=== PATIENT | female | born 1960 | race Caucasian/White ===

== ENCOUNTER → 2020-05-11 11:30 | Outpatient (CLI) | payer OTHER, SELFPAY ==
--- NOTE | 2020-05-11 | DI.MRI.S_ITS ---
PROCEDURE: MR SHOULDER RT WO CON INDICATIONS: RIGHT SHOULDER PAIN TECHNIQUE: Noncontrast oblique coronal T2 fast spin echo with fat saturation, oblique sagittal T1 spin echo and T2 fast spin echo with fat saturation, axial T1 spin echo and T2 fast spin echo with fat saturation through the shoulder. COMPARISON: [facility] Outside Film, CR, XR SHOULDER 2+ VIEWS RIGHT, 04/12/2020, 10:07. FINDINGS: Image quality: Excellent. Rotator cuff: There is moderate to severe supraspinatus and infraspinatus tendinosis with low-grade bursal sided fraying at the distal insertion. Superimposed low-grade intrasubstance and bursal sided tearing is seen in the supraspinatus tendon approximately 2 cm proximal to the distal insertion The teres minor tendon is intact. There is mild subscapularis tendinosis. There is no significant rotator cuff muscle atrophy. Bones and bursae: No acute bone marrow contusions or fractures. Chronic traction cystic changes are seen at the posterosuperior humeral head. Mild degenerative spurring is seen in the glenoid rim. Moderate acromioclavicular osteoarthrosis is seen with mild subchondral edema and marginal osteophyte formation. There is no significant glenohumeral joint effusion. There is a moderate amount of subacromial/subdeltoid bursal fluid. Capsule and soft tissues: In the absence of intra-articular contrast, the labrum and glenohumeral ligaments appear intact. The long head of the biceps tendon demonstrates normal location and morphology. The rotator interval appears normal, without fibrosis. The inferior glenohumeral ligament is normal in thickness. IMPRESSION: 1. Moderate to severe supraspinatus and infraspinatus tendinosis. There is low-grade intrasubstance and bursal sided tearing in the supraspinatus tendon approximately 2 cm proximal to the distal insertion. Mild bursal sided fraying is also noted. 2. Mild subscapularis tendinosis. 3. 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 4. Moderate subacromial/subdeltoid bursal effusion or bursitis. Dictated by: Bakari Duvall M.D. on 05/11/2020 at 12:16 Approved by: Bakari Duvall M.D. on 05/11/2020 at 12:26
== END ==
PROVIDERS: PCP Nurse Practitioner Family; Referring Provider Orthopaedic Surgery; Visit Provider Orthopaedic Surgery
DX: M25.511 Pain in right shoulder (principal); M75.111 Incomplete rotator cuff tear or rupture of right shoulder, not specified as traumatic; M19.011 Primary osteoarthritis, right shoulder
CPT/HCPCS: 73221